=== PATIENT | male | born 1990 | race Caucasian/White ===

== ENCOUNTER 2016-06-07 09:40 | Day surgery (SDC) | payer OTHER ==
[~2016-06-07] VITALS: Ht 175.3 cm; Wt 54.0 kg
[~2016-06-07 09:40] MED LIST: 0.9% Sodium Chloride 1,000 ML IV SCH; ASPI-973 PO; Lactated Ringer's 1,000 ML IV ONE; METH10OR11 PO; ONDA-53 PO; Sodium Chloride LOK Flush 10 mL Syringe IV PRN; fentaNYL-PF 50 mCg/mL 2 mL Inj IVPUSH PRN
[2016-06-07] MEDS ORDERED: Propofol 10,000 mCg/mL 20 mL Inj ONE (09:41)
[2016-06-07] MEDS ORDERED: Lidocaine PF 1% 30 mL Inj ONE (09:41)
[2016-06-07 10:08] VITALS: BP 124/83; PULSE 76; RESP 15; O2SAT 98
[2016-06-07] MEDS ORDERED: KLO1T PO (10:10)
[2016-06-07] MEDS ORDERED: Lactated Ringer's 1,000 ML IV SCH (10:12)
[2016-06-07] MEDS ORDERED: MetoCLOpramide 5 mg/mL 2 mL Inj IVPUSH PRN (10:15)
[2016-06-07] MEDS ORDERED: Ondansetron 2 mg/mL 2 mL Inj IVPUSH PRN (10:15)
[2016-06-07] MEDS ORDERED: Atropine 0.4 mg/mL Inj IVPUSH PRN (10:15)
--- NOTE | 2016-06-07 11:53 | PCM.HPANE ---
Patient Data Date of Service: Jun 07, 2016 Surgeon Admitting Provider: Attending Provider:Abraham Araya MD Primary Care Physician:Other,Physician Other Provider:Glenda Conti Reason for Visit Diarrhea Ht/WT & BMI Height (Feet): 5 Height (Inches): 9 Weight (Kilograms): 54 Body Mass Index 17.00 Allergies Coded Allergies: cefaclor (Verified Allergy, Mild, rash, 06/06/16) chlorhexidine (Verified Allergy, Mild, rash, 06/06/16) nafcillin (Verified Allergy, Mild, rash, 06/06/16) Past Anesthesia History Anesthesia History: Denies:: Abnormal Airway, Anesthesia Reactions, Difficult Intubation, Malignant Hyperthermia Diabetes History Hx Diabetes?: No MRSA MRSA: Yes (MRSA sepsis) Medications Blood Thinner: Aspirin Hypertension Medication: No Home Meds Incl Beta Harsh: No Reported Medications Clonazepam 1 Mg Tablet1 Mg PO BID PRN For Anxiety Ref 0 06/07/16 Ondansetron 4 Mg Tablet4 Mg PO 06/06/16 Methadone 10 Mg/1 Ml Oral.conc3 Ml PO DAILY 06/06/16 Aspirin 81 Mg [id number] Mg PO DAILY Ref 0 06/06/16 History HEENT History: Denies:: Abnormal Airway Difficult Intubation Hearing Problem Hx of Heart Problems?: Yes Cardiovascular History: Positive for:: 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, Tricuspid repair, MVR, PVR) Denies:: AICD Pacemaker Hx of Respiratory Problem?: No Hx Neurologic Problems?: No Neurological History: Denies:: CVA Hx of GI Problems?: Yes Gastrointestinal History: Positive for:: Gall Bladder Disease (Rosenda) Gastroesphageal Reflux Rectal Bleeding Denies:: Liver Disease Psycho Social History: Positive for:: Anxiety Hx Depression Hx Surgeries?: Yes (Porcine valves x2 and band, thoracentesis, rosenda) Hx Any Other Health Problems?: Yes Hx Alcohol Use: NoHx Substance Use: Yes (currently on methadone treatment) Stop/Bang Treated for Sleep Apnea?: No Do You Have a CPAP Machine?: No S-Snoring: Do You Snore Loudly: No T-Tired: feel tired, fatigued: Yes O-Obsered: Observed not breath: No P-Blood Pressure: treated: No B- Body Mass Index > 35 kg/m2: No A- Age over 50: No N- Neck Large Circumference: No G- Gender Male: Yes BILLY Total Score: 2 Risk Assessment Category Category 1A: Patient has history of documented sleep apnea, and HAS NOT received any narcotic, sedative or anesthesia administration during this stay. Category 1B: Patient has history of documented sleep apnea, and HAS received any narcotic , sedative or anesthesia administration during this stay Category 2: Patient has SUSPECTED Obstructive Sleep Apnea, and HAS received any narcotic , sedative or anesthesia administration during this stay. Category 3: Patient has SUSPECTED Obstructive Sleep Apnea and HAS NOT received narcotic, sedative or anesthesia administration during this stay. Category 4: Outpatient in Procedural Areas with known sleep apnea or who screen positive for High Risk via the STOP/BANG questionnaire. Exam Exam Vital Signs Vital Signs Date Time Temp Pulse Resp B/P Pulse Ox O2 Delivery O2 Flow Rate FiO2 06/07/16 10:08 76 15 124/83 98 Room Air General Appearance: Alert, Oriented X3 HEENT/AIRWAY: MP 1, Neck Movement (Full), Mouth Opening (Wide) Lungs: Clear to Auscultation, Normal Air Movement Heart: Regular Rate/Rhythm, Normal S1, Normal S2 Meds/Labs/Diagnostics Additional Information Outside cardiology notes and echo from [facility] reviewed. History of endocarditis with PVR, MVR and tricuspid repair Plan Impression Patient chart reviewed, patient interviewed and anesthestic plan with risks, benefits, and alternatives discussed, and informed consent obtained. NPO Status: > 2 hours NPO ASA Physical Status: ASA3 Severe Disease Anesthetic Plan: MAC Bene/Risks/Altern/Consents: Yes HP Complete Prior to Induction: Yes Jan Williamson MD Jun 07, 2016 10:24
[2016-06-07 12:18] VITALS: BP 82/44; PULSE 46; RESP 14; O2SAT 97
[2016-06-07 12:28] VITALS: BP 85/54; PULSE 47; RESP 16; O2SAT 100
--- NOTE | 2016-06-07 12:28 | PCM.ANEP1 ---
Post Anesthesia Phase 1 PACU Phase 1 Assessment Date of Service: Jun 07, 2016 Vital Signs Vital Signs Date Time Temp Pulse Resp B/P Pulse Ox O2 Delivery O2 Flow Rate FiO2 06/07/16 12:18 46 14 82/44 97 Room Air 06/07/16 10:08 76 15 124/83 98 Room Air Anesthetic Administered: MAC Level of Alertness: Sleeping, hard to arouse LYNCH's with Equal Strength: Yes Pain: No Nausea or Vomiting: No Oxygen Delivery: Room Air Lungs: Normal Air Movement Jan Williamson MD Jun 07, 2016 12:28
--- NOTE | 2016-06-07 12:33 | PCM.ANEP2 ---
Post Anesthesia Evaluation ASA/CMS Post Anesthesia Date of Service: Jun 07, 2016 VS in Patient's Normal Range?: Yes Resp Stable; Airway Patent?: Yes CV Function & Hydration Stable: Yes Mental Status Recovered?: Yes Pain control Satisfactory?: Yes N/V Control Satisfactory?: Yes Jan Williamson MD Jun 07, 2016 12:33
[2016-06-07 12:38] VITALS: BP 92/56; PULSE 49; RESP 16; O2SAT 100
--- NOTE | 2016-06-07 14:32 | ENDO ---
[address] [address] ENDOSCOPY PROCEDURE PATIENT: AMEYA MORILLO : 1990 MR#: [id number] ADMIT: 06/07/2016 JOB ID: [id number] DATE: 06/07/2016 PROCEDURE: Colonoscopy with biopsy. PREOPERATIVE DIAGNOSIS(ES): Diarrhea. POSTOPERATIVE DIAGNOSIS(ES): Multiple ulcers seen in terminal ileum suspicious for Crohn disease, status post biopsy. ANESTHESIA: Monitored anesthesia care. COMPLICATIONS: None. BLOOD LOSS: Minimal. DESCRIPTION OF PROCEDURE: After risks and benefits were explained to the patient, informed consent was obtained. After anesthesia administered, colonoscope was inserted from the rectum to the cecum. Mucosa carefully examined. Prep of the patient was fair. After procedure was done, the scope withdrawn and procedure terminated. FINDINGS: Upon inspection of the anus, no masses, hemorrhoids, ulcers, fissures that were seen. Throughout the entire examination, there were multiple ulcers seen in the terminal ileum which were biopsied. Random biopsies were also performed of the colon. Retroflexion was normal. IMPRESSIONS: Multiple ulcers in the terminal ileum status post biopsy, clean based, nonbleeding, largest size measuring 2 mm. RECOMMENDATIONS: Await pathology results. Followup in GI clinic as needed.
--- NOTE | 2016-06-10 14:26 | PATH ---
SURGICAL PATHOLOGY Attending Physician:Abraham Araya MD CASE STATUS: Signed Out PATIENT NAME: AMEYA MORILLO PID: [id number] : 1990 DATE COLLECTED:06/07/2016 20:26 SPECIMEN: 1: Ileum, Biopsy 2: Colon, Biopsy CLINICAL HISTORY: 1). TERMINAL ILEUM BIOPSIES 2). RANDOM COLON BIOPSIES FINAL DIAGNOSIS: 1.TERMINAL ILEUM BIOPSIES: NORMAL TERMINAL ILEUM MUCOSA. No inflammation identified. Negative for dysplasia and malignancy. 2.RANDOM COLON BIOPSIES: COLONIC MUCOSA WITH NO DIAGNOSTIC ALTERATIONS. Negative for inflammation, dysplasia and malignancy. ICD10 code R10.9 GROSS DESCRIPTION: The specimen is received in two formalin filled containers labeled with the patient's name. 1). The specimen is sublabeled "terminal ileum" and consists of 3 portions of tissue which aggregate to 0.3 x 0.3 x 0.2 CM. The specimen is entirely submitted in cassette 1A. 2). The specimen is sublabeled "random colon" and consists of multiple portions of tissue which aggregate to 0.4 x 0.4 x 0.2 CM. The specimen is entirely submitted in cassette 2A. 06/07/2016 [facility] MICRO DESCRIPTION: See diagnosis. ICD-9 CODES: CPT CODES: 1: 67762 2: 75233 Electronically Signed Out Carine Thomas MD [facility] Pathology [facility], [place] [address] Technical component performed at [facility], [address] [place] [address] Ave[address], [place], [address]
== END 2016-06-07 23:59 | disposition home or self-care (01) ==
LOC: END 09:40
PROVIDERS: ATTEND Internal Medicine Gastroenterology
DX: R19.7 Diarrhea, unspecified (principal); K63.3 Ulcer of intestine; F17.210 Nicotine dependence, cigarettes, uncomplicated; Z79.82 Long term (current) use of aspirin; Z79.899 Other long term (current) drug therapy
CPT/HCPCS: 45380; J7120